=== PATIENT | male | born 1945 | race Caucasian/White ===

== ENCOUNTER → 2023-07-31 15:02 | Outpatient (REF) | payer MEDICARE, SELFPAY | LOC: PAVMRI 15:02 | PROVIDERS: ATTENDING PHYSICIAN Psychiatry & Neurology Neurology; FAMILY PHYSICIAN Family Medicine; PRIMARYCARE PHYSICIAN Family Medicine | DX: R47.9 Unspecified speech disturbances (principal) | CPT/HCPCS: 70551 ==

== ENCOUNTER 2024-02-01 13:34 | Inpatient (IN) | payer MEDICARE, SELFPAY ==
[2024-02-01] VITALS (7 sets, daily range): BP systolic 116–164; BP diastolic 74–102; BMI 21.5
--- NOTE | 2024-02-01 11:05 | EDRN ---
Dr. Bowman in room w/pt at this time.
--- NOTE | 2024-02-01 11:37 | ED.GENMED ---
History of Present Illness
General
Chief Complaint: Skin Problem
Source: patient and family
Exam Limitations: none
Time Seen by Provider: 02/01/24 10:27
Nursing documentation reviewed up to this point in time: agreed with
History of Present Illness
History of Present Illness:
78-year-old male bilateral lower extremity weakness had skin cancer removed from his left desai 1 week or so ago sutured by service order taker coincidently injured his right desai end of December a branch cut down with a chainsaw, seen at an urgent care
started on Keflex set for 5 days worth, no fever had increased redness and pain left greater than right anteriorly
No fevers did have some drainage right greater than left, his chronic low back pain had been on narcotics now on Neurontin his chronic kidney disease
Past History
Past History
ED Past Medical History: COPD, Renal failure and Other (arthritis, kidney disease,)
ED Past Surgical History: Appendectomy
Social History
Tobacco: Former smoker
Alcohol: None
Drug: None
Personal:
Living: with family
Employment: Retired
Review of Systems
Review of Systems
All Other Systems: Not applicable
Constitutional: Reports sleep disturbance; Denies fever or fatigue
EENT: Reports no symptoms
Respiratory: Reports no symptoms
Cardiac: Reports no symptoms
ABD/GI: Reports no symptoms
: Reports no symptoms
Musculoskeletal: Reports muscle stiffness and edema
Skin: Reports rash and other (Redness)
Hematologic/Lymphatic: Reports no symptoms
Psychiatric: Reports no symptoms
Phy Exam
Physical Exam
Physical Exam:
Physical Exam
General: no apparent distress, not acutely ill
Neck: No jaundice
Heart: s1/s2 regular rate and rhythm, no murmur. equal radial pulses.
Lungs: no acute respiratory distress. clear bilaterally
Abdomen: Nontender
Neuro: alert and oriented. no focal neurological deficits
Skin: Warm and dry
Psychiatric: well kept. interactive and cooperative
Extremities: Abrasion on the right desai with surrounding cellulitis sutured wound on the left desai with warmth surrounding cellulitis
Course
Orders/Labs/Results
Orders:
Orders
02/01/24 11:22
Morphine Sulfate 4 mg IV NOW STA
02/01/24 11:23
Tibia/Fibula, Right 2 View [CR Leg Tibia/fibula Right 2 Vw] Urgent
Comment:
Reason For Exam: swelling truam
02/01/24 11:31
Complete Blood Count/With Diff Urgent
Comprehensive Metabolic Panel Urgent
02/01/24 14:00
VANCOMYCIN Pharmacy to Dose [VANCOCIN Pharmacy to Dose] 1 each Pharmacy To Prepare [Call Pharmacy To Prepare] 0 ml IV PER PROTOCOL
Abnormal Lab Results
02/01/24
11:31
RBC 3.96 L 10^6/uL
(4.70-6.10)
Hgb 12.3 L g/dL
(13.0-18.0)
Hct 36.2 L %
(39.0-52.0)
MCH 31.1 H pg
(27.0-31.0)
MPV 10.6 H fL
(7.4-10.4)
Abs Immat Gran (auto) 0.1 H 10^3/uL
(0-0.05)
Absolute Lymphs (auto) 0.8 L 10^3/uL
(1.2-3.4)
Immature Gran % 1.2 H %
(0-0.5)
Lymphocytes % 11.7 L %
(20.5-51.1)
Monocytes % 9.4 H %
(1.7-9.3)
BUN 48 H mg/dl
(9-20)
Creatinine 1.8 H mg/dL
(0.7-1.3)
Total Protein 5.9 L g/dl
(6.3-8.2)
02/01/24 11:31
02/01/24 11:31
Vital Signs
Initial and Last Documented VS:
Initial Vital Signs
Temp Pulse Resp BP Pulse Ox
98.2 F 83 16 142/78 98
02/01/24 10:21 02/01/24 10:21 02/01/24 10:21 02/01/24 10:21 02/01/24 10:21
Last Documented Vital Signs
Temp Pulse Resp BP Pulse Ox
98.2 F 83 16 142/78 98
02/01/24 10:21 02/01/24 10:21 02/01/24 10:21 02/01/24 10:21 02/01/24 10:21
MDM/Problems Addressed
Differential Diagnosis Includes:
Cellulitis dermatitis has been on antibiotic
MDM/Problems Addressed:
Cellulitis failed outpatient
Chronic conditions affecting care:
COPD
Chronic conditions affecting care: Kidney disease
Acute Exacerbation and/or Progression of Chronic Illness:
COPD
Acute Exacerbation and/or Progression of Chronic Illness: Kidney disease
*Critical Care Note
Total Time (30-74mins, 75-104mins- exclusive of procedures): Not Applicable
Update Note
Update Note:
Update suspect infection, will check x-ray to look for foreign body on the right I think is unlikely no x-ray on the left as this was a surgical wound, anterior desai does not typically heal well he does have chronic renal insufficiency
ED Attending Note
-
Portions of this chart may have been created with voice recognition software.� Occasional wrong word or��sound alike� substitutions may have occurred due to the inherent limitations of voice recognition software.
Discharge Plan
Departure
Patient Disposition: Admit
Date of Disposition: 02/01/24
Time of Disposition: 12:30
Admit to: Med/Surg
Presentation/result/management discussed w/ accepting MD/DO: Hospitalist
Patient with high blood pressure during this ER visit?: No
Condition: Fair
Discharge Problem:
Cellulitis
Instructions: Cellulitis (Skin Infection), Adult (DC)
Prescriptions:
No Action
oxycodone 10 MG tablet
10 mg PO Q4HPRN PRN (Reason: breakthrough pain)
oxycodone [OxyContin] 20 MG tablet,oral only,ext.rel.12 hr
20 mg PO Q12
Referrals:
Prince Chambers DO [Family Provider] -
Interventions
Interventions:
*Risk Screen - Suicide Last Done: 02/01/24 10:58
*General Assessment Last Done: 02/01/24 10:58
*Neglect/Abuse Screening Last Done: 02/01/24 10:58
ED- Fall Risk Assessment Last Done: 02/01/24 10:58
*ED COVID-19 Vaccine History Last Done: 02/01/24 10:58
Discharge Date and Time
Print Language: ITALIAN
[2024-02-01 11:55] LABS: ALT (SGPT) 22 U/L (0-50); AST (SGOT) 25 U/L (17-59); Albumin 3.9 g/dl (3.5-5.0); Alkaline Phosphatase 89 U/L (38-126); Blood Urea Nitrogen 48 mg/dl (9-20); Calcium 9.5 mg/dl (8.4-10.2); Carbon Dioxide 25 mmol/L (22-30); Chloride 107 mmol/L (98-107); Estimated Creatinine Clearance 32 ml/min; Glucose 88 mg/dl (70-99); Potassium 5.1 mmol/L (3.5-5.1); Sodium 137 mmol/L (135-145); Total Bilirubin 0.3 mg/dl (0.2-1.3); Total Protein 5.9 g/dl (6.3-8.2); eGFR 37.58
[2024-02-01 11:56] LABS: % Basophils 0.6 % (0-2); % Eosinophils 3.4 % (0-6); % Immature Granulocytes 1.2 % (0-0.5); % Lymphocytes 11.7 % (20.5-51.1); % Monocytes 9.4 % (1.7-9.3); % Neutrophils 73.7 % (42.2-75.2); Absolute Eosinophils 0.2 10^3/uL (0-0.7); Absolute Immature Granulocytes 0.1 10^3/uL (0-0.05); Absolute Lymphocytes 0.8 10^3/uL (1.2-3.4); Absolute Monocytes 0.6 10^3/uL (0.1-0.6); Absolute Neutrophils 4.8 10^3/uL (1.4-6.5); Hematocrit 36.2 % (39.0-52.0); Hemoglobin 12.3 g/dL (13.0-18.0); Mean Corpuscular Hgb 31.1 pg (27.0-31.0); Mean Corpuscular Volume 91.4 fL (80.0-94.0); Mean Platelet Volume 10.6 fL (7.4-10.4); Nucleated Red Blood Cells % 0 % (-); Platelet Count 189 10^3/uL (130-400); Red Blood Cell Count 3.96 10^6/uL (4.70-6.10); Red Cell Dist. Width 13.6 % (11.5-14.5); White Blood Cell Count 6.5 10^3/uL (4.8-10.8)
[2024-02-01] MEDS: MORPHINE SULFATE 4 MG IV (12:01)
--- NOTE | 2024-02-01 12:43 | EDRN ---
WOUND/SKIN CARE NOTE: pt identified by name and OB.
R lower lateral leg redness
R mid anterior lower leg wound.
R lower leg medial aspect.
R lower leg anterior lateral view
R lower leg lateral view
R lower leg lateral view
R lower leg wound
R lower leg wound
L lower leg anterior medial view
--- NOTE | 2024-02-01 12:50 | EDRN ---
Pharmacist called to dose and send vancocin at this time.
--- NOTE | 2024-02-01 12:50 | HPS.HSE ---
Addendum entered and electronically signed by Rohan Aguilera MD 02/01/24 13:22:
as per outside records, recent creatinine levels 1.93, 1.85, 1.79 consistent with CKD3b
Original Note:
Family Physician
-
Family Physician: Prince Chambers
Chief Complaint
-
RLE cellulitis
History of Present Illness
78 y/o M with PMHx:
CKD (stage unknown)
Chronic low back pain
COPD
who p/w CC RLE cellulitis. Patient injured his right desai towards the end of December when using a chainsaw to cut down a tree branch. He was recently seen in urgent care and placed on Keflex. Erythema of the right lower extremity worsened and he
presented to the ER. Denies any other acute complaints including chest pain, shortness of breath, abdominal pain, vomiting, syncope, diaphoresis.
Medical History
Past Medical History
Past Medical History: Reports Other (as per HPI)
Past Surgical History: Reports Other (N/A)
Social History
Tobacco: Former Smoker
Alcohol: None
Drug: None
Family History
Family History: Not pertinent
Allergies / Home Medications
Allergies reflects when Allergies were last updated in [employer].
Home Medications with original date entered in [employer]
Allergy/Medication List:
Allergies
Allergy/AdvReac Type Severity Reaction Status Date / Time
buspirone HCl [From BuSpar] Allergy Unknown Shortness Verified 02/01/24 10:20
of Breath
fentanyl [From Duragesic] Allergy Unknown Shortness Verified 02/01/24 10:20
of Breath
hydromorphone HCl Allergy Unknown Unknown Verified 02/01/24 10:20
[From Dilaudid]
Penicillins Allergy Unknown Unknown Verified 02/01/24 10:20
Home Medications
acetaminophen 650 mg tablet,extended release 1,300 mg PO [id number] PRN mild pain 02/01/24
albuterol 90 mcg-budesonide 80 mcg/actuation HFA aerosol inhaler (Airsupra) 2 inh inhalation R QPM 02/01/24
cephalexin 250 mg tablet 250 mg PO Q8H 02/01/24
cholecalciferol (vitamin D3) 50 mcg (2,000 unit) tablet (Vitamin D3) 50 mcg PO DAILY 02/01/24
gabapentin 300 mg capsule 300 mg PO HS 02/01/24
glycopyrrolate 9 mcg-formoterol 4.8 mcg HFA aerosol inhaler (Bevespi Aerosphere) 2 puff inhalation R DAILY 02/01/24
methyl ghichlelgg-jinrcij-kizvmnx-[place] fir needle oil nasal inhalr (Vicks VapoInhaler nasal) 1 inh intranasal DAILY 02/01/24
multivitamin-ferrous fumarate-folic acid 18 mg-400 mcg tablet (Centrum) 1 tab PO DAILY 02/01/24
rimegepant 75 mg disintegrating tablet (Nurtec ODT) 75 mg PO Q48H 02/01/24
solifenacin 5 mg tablet 5 mg PO MOWEFR 02/01/24
Review of Systems
-
History Source: Patient
A 12 point ROS was completed and negative except as noted: Yes
Physical Exam
Vital Signs
Vital Signs
Temp Pulse Resp BP Pulse Ox
98.2 F 72 16 116/83 777
02/01/24 10:21 02/01/24 12:00 02/01/24 12:00 02/01/24 12:00 02/01/24 12:00
Physical Exam
General: Other (.)
Laboratory Results
-
02/01/24 11:31
02/01/24 11:31
Laboratory Results
Total Bilirubin 0.3 mg/dl (0.2-1.3) 02/01/24 11:31
AST 25 U/L (17-59) 02/01/24 11:31
ALT 22 U/L (0-50) 02/01/24 11:31
Alkaline Phosphatase 89 U/L (38-126) 02/01/24 11:31
Impression/Plan
-
Gen: NAD, AAOx3.
Eyes: EOMI, PERRLA, no scleral icterus.
Neck: supple.
CV: RRR, +S1/S2, no m/r/g.
Resp: CTAB, no rales, wheezes, or rhonchi.
Abd: +BS, soft, NT, ND
Skin: L leg with sutures laterally with mild surrounding cellulitis. No pus was able to be expressed with palpation. Right lower extremity abrasion/avulsion injury without discharge and with surrounding cellulitis that tracks distally
Neuro: CN 2-12 intact, non-focal.
Psych: Normal mood and affect.
RLE cellulitis:
-failed Keflex
-IV Ancef
-wound care
Elevated Cr:
-baseline Cr unknown (pt's family is accessing a pt portal for last Cr)
COPD:
-cont Bevespi/Airsupra
Chronic back pain:
-cont home analgesic regimen
DNR - confirmed with the pt in the ER
Heparin
--- NOTE | 2024-02-01 13:07 | EDRN ---
Dr. Aguilera in to see pt. He requested pt's baseline kidney levels. Pt's spouse is looking them up now.
--- NOTE | 2024-02-01 13:16 | EDRN ---
Pt having severe epigastric pain at this time.
--- NOTE | 2024-02-01 13:34 | EDRN ---
13:15 Dr. Aguilera notified about pt's epigastric pain, EKG, and creatinine levels via TT-- creat levels--01/04/24 1.93, 09/20/23 1.85, and 1.79 02/14.
--- NOTE | 2024-02-01 13:43 | EDRN ---
MNo Delay Nurse Report sent to 4th floor E for M/S bed 404.1 at this time w/ call placed to floor and message left for RN who will care for pt.
[2024-02-01] MEDS: VANCOCIN 540 MG IV (13:58)
[2024-02-01] MEDS: MAALOX 40 PO (13:59)
--- NOTE | 2024-02-01 14:15 | EDRN ---
Pt states at this time that his indigestion is all gone. Pain in his R lower leg remains 6-10/10 and burning at baseline to sharp when it increases. L leg is now pain free.
--- NOTE | 2024-02-01 15:26 | PTCARENOTE ---
Received pt form ER via stretcher, accompanied by ER staff. Pt AAO x3, GUTIERREZ well, transferred to bed with minimal assistance; denies weakness/dizziness. VSS. On room air- pulse ox 99%, no SOB noted. Abd soft, rounded, BS (+); to start regular
diet. Pt DTV- urinal at bedside. Pt has sutured area Lt lateral lower leg; small skin tear below Rt knee; reddened/scabbed area Rt ant lower legs; DSD applied over sites. Pt oriented to 4East, currently resting in bed; at bedside. Will
continue to monitor.
--- NOTE | 2024-02-01 16:27 | WOUNDNOTE ---
R CALF (LATERAL ANTERIOR)
--- NOTE | 2024-02-01 16:27 | WOUNDNOTE ---
R CALF (LATERAL ANTERIOR)
--- NOTE | 2024-02-01 16:27 | WOUNDNOTE ---
L CALF (LATERAL); skin cancer removal site
--- NOTE | 2024-02-01 16:27 | WOUNDNOTE ---
L CALF (lateral anterior)
--- NOTE | 2024-02-01 16:28 | WOUNDNOTE ---
JEEVAN (L LATERAL, R MEDIAL)
--- NOTE | 2024-02-01 16:34 | WOUNDNOTE ---
[facility] RN note: Patient admitted with RLE cellulitis. Patient lives with his . Patient injured his RLE from [place] branch at end of December. He had L lateral calf skin cancer removal done 01/24/[address] Clark from [place].
See H&P for complete history.
PMH: CKD, chronic low back pain, COPD, former smoker. He stated he has seen Dr. Michael, vascular surgeon at [place] a long time ago and patient is interested in switching doctors to [place].
Wound Location and type/assessment: Patient admitted with: Dermal abrasions R upper lateral calf and R distal anterior medial knee, pink with small ss drainage. +Diffuse erythema distal to R calf wound. L lateral calf skin cancer incision with
sutures intact without drainage with erythema noted medially. He has follow up appointment with flexo press operator next week for suture removal. stated LLE incision current treatment is clean with soap and water, cover with dry gauze, secure with
Ronny. Patient is on IV Ancef. Trace LE edema. Skin on heels blanchable mild red and intact. Toes cool. Patient's stated his hands and feet are usually cold. +Pedal pulses heard via portable Doppler (biphasic). Patient denies leg pain after
walking. Suggested he make routine appointment with vascular surgeon.
Appetite: on regular diet.
Pressure redistribution devices in place: Centrea Max air bed. Patient moves and ambulates himself.
Plan: Dressing on legs changed. Heels off bed with pillow. Instructed patient pressure injury prevention measures including heel elevation off bed. Patient stated he is not interested in wearing compression stockinet (i.e. Tubigrip) and he is not
interested in a visiting nurse. Suggested he follow up at wound care center.
Confirmed orders with Dr. Aguilera and discussed with CJ Carrion.
Care plan to be updated and will follow as needed.
[2024-02-01] MEDS: NSS 1000 IV (16:38)
[2024-02-01] MEDS: FLUSH (NSS) 1 FLUSH IV (16:38)
[2024-02-01] MEDS: ANCEF 5 IV ×2 (16:38→21:07)
[2024-02-01] MEDS: HEPARIN 5000 UNITS SC (19:46)
[2024-02-01] MEDS: TYLENOL 650 MG PO (19:50)
[2024-02-01] MEDS: NEURONTIN 300 MG PO (21:08)
[2024-02-02] MEDS: NSS 1000 IV ×2 (04:02→17:51)
[2024-02-02] MEDS: ANCEF 5 IV ×3 (05:36→21:05)
[2024-02-02] MEDS: STRIVERDI RESPIMAT 2 PUFF INH (07:03)
[2024-02-02] MEDS: SPIRIVA RESPIMAT 2.5 MCG 2 PUFF INH (07:03)
[2024-02-02] MEDS: TYLENOL 650 MG PO ×2 (07:16→11:21)
[2024-02-02 07:25] VITALS: BP 130/69
[2024-02-02] MEDS: VITAMIN D3 (cholecalciferol) 50 MCG PO (07:55)
[2024-02-02] MEDS: THERAGRAN 1 TABLET PO (07:55)
[2024-02-02] MEDS: HEPARIN 5000 UNITS SC ×2 (07:56→21:04)
[2024-02-02 08:19] LABS: Hematocrit 35.6 % (39.0-52.0); Mean Corp Hgb Conc. 33.7 g/dL (33.0-37.0); Mean Corpuscular Hgb 31.2 pg (27.0-31.0); Mean Corpuscular Volume 92.5 fL (80.0-94.0); Mean Platelet Volume 10.8 fL (7.4-10.4); Platelet Count 170 10^3/uL (130-400); Red Blood Cell Count 3.85 10^6/uL (4.70-6.10); Red Cell Dist. Width 13.8 % (11.5-14.5); White Blood Cell Count 4.8 10^3/uL (4.8-10.8)
[2024-02-02 08:53] LABS: Blood Urea Nitrogen 41 mg/dl (9-20); Calcium 9.3 mg/dl (8.4-10.2); Carbon Dioxide 25 mmol/L (22-30); Chloride 110 mmol/L (98-107); Estimated Creatinine Clearance 36 ml/min; Glucose 79 mg/dl (70-99); Potassium 4.6 mmol/L (3.5-5.1); Sodium 138 mmol/L (135-145); eGFR 43.29
[2024-02-02 09:25] VITALS: BMI 28.6
--- NOTE | 2024-02-02 09:50 | W.PN.HOSP.TC ---
Today's Communication/Plan
-
see bold
Assessment / Plan
Assessment / Plan
Gen: NAD, Awake and alert
Eyes: EOMI, PERRLA, no scleral icterus.
Neck: supple.
CV: remains RRR, +S1/S2, no m/r/g.
Resp: CTAB, no rales, wheezes, or rhonchi.
Abd: +BS, soft, NT, ND
Skin: L leg with sutures laterally with minimal surrounding cellulitis. Right lower extremity with intact dressing over abrasion/avulsion injury. Surrounding cellulitis improved from yesterday.
Neuro: CN 2-12 intact, non-focal.
Psych: Normal mood and affect.
RLE cellulitis:
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
-cont IV Ancef
-wound care
-likely d/c tomorrow on PO abx
Other problems:
CKD3b
COPD: cont Bevespi/Airsupra
Chronic back pain: cont home analgesic regimen
DNR - confirmed with the pt in the ER
Heparin
Anticipated Discharge: Within 24 hours
Subjective/Interval History
-
Date of Service: February 02, 2024
No new complaints.
Objective Data
-
Labs:
Laboratory Results
02/02/24
06:05
WBC 4.8
Hgb 12.0 L
Hct 35.6 L
Plt Count 170
Sodium 138
Potassium 4.6
Chloride 110 H
Carbon Dioxide 25
BUN 41 H
Creatinine 1.6 H
Glucose 79
Calcium 9.3
Vital Signs:
Vital Signs
Temp Pulse Resp BP Pulse Ox
97.7 F 65 18 130/69 93
02/02/24 07:25 02/02/24 07:25 02/02/24 07:25 02/02/24 07:25 02/02/24 07:41
I&O
02/01/24 02/02/24 02/03/24
06:59 06:59 06:59
Intake Total 340 / 340
Output Total 650 / 650
Balance -310 / -310
[2024-02-02 15:20] VITALS: BP 126/73
--- NOTE | 2024-02-02 17:00 | CM ---
CM met with Thuy at bedside to complete IA. He and his live in a 1 story home with no entry steps.
Thuy injured his leg doing yard work last month. The wound became infected and he was taking antibiotics from urgent care, however it continued to worsen. He is now on IV abx and anticipates discharge in a day or so; VN offered and refused.
Plan: Discharge to home with OP follow up.
PCP: Prince Chambers
Pharm[place]: [facility] [facility] [place]
[2024-02-02] MEDS: NEURONTIN 300 MG PO (21:05)
[2024-02-02 23:29] VITALS: BP 136/81
[2024-02-03] MEDS: ANCEF 5 IV (05:53)
[2024-02-03 06:00] VITALS: BMI 28.4
[2024-02-03] MEDS: STRIVERDI RESPIMAT 2 PUFF INH (07:10)
[2024-02-03] MEDS: SPIRIVA RESPIMAT 2.5 MCG 2 PUFF INH (07:10)
[2024-02-03 07:25] VITALS: BP 128/82
[2024-02-03] MEDS: VITAMIN D3 (cholecalciferol) 50 MCG PO (09:39)
[2024-02-03] MEDS: THERAGRAN 1 TABLET PO (09:39)
[2024-02-03] MEDS: TYLENOL 650 MG PO (09:41)
[2024-02-03] MEDS: HEPARIN SC (09:42)
--- NOTE | 2024-02-03 11:49 | W.PN.HOSP.TC ---
Today's Communication/Plan
-
Discharge
Assessment / Plan
Assessment / Plan
Left lateral calf surgical wound without any bleeding or discharge. Has sutures in.
Right leg skin abrasion no redness
Cardiovascular system S1-S2 appreciated
Chest clear to auscultation
#RLE cellulitis:
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
-Discussion with pharmacy patient should be on 500 every 6 for 5 days
-Change Ancef to Keflex. Discussed with patient and about new prescription
-wound care discussed
-Last tetanus vaccine was 01/25/2023 per and patient
#CKD3b
#COPD: cont Bevespi/Airsupra
#Chronic back pain: cont home analgesic regimen
#Ex-smoker
#DNR
#DVT prophylaxis-subcutaneous heparin
Discussed with the patient's regarding follow-up care
Discussed with nursing at bedside
Anticipated Discharge: Today
Subjective/Interval History
-
Date of Service: February 03, 2024
Objective Data
-
Vital Signs:
Vital Signs
Temp Pulse Resp BP Pulse Ox
97.6 F 76 18 128/82 96
02/03/24 07:25 02/03/24 07:25 02/03/24 07:25 02/03/24 07:25 02/03/24 07:25
I&O
02/02/24 02/03/24 02/04/24
06:59 06:59 06:59
Intake Total 340 / 340
Output Total 650 / 650 875 / 875
Balance -310 / -310 -875 / -875
--- NOTE | 2024-02-03 12:19 | W.DS.TRANS ---
Addendum entered and electronically signed by Marly Hernandez MD 02/04/24 17:38:
Dictation- [id number]
Original Note:
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
-
Discharge Instructions:
Discharge Diagnosis/Procedures Cellulitis, COPD, Chronic kidney disease
Diet As tolerated
Activity As tolerated
Driving Restrictions As prior to admission
Instructions:
Stand-Alone Forms:
Changes to Home Medications: Yes
Discharge Medications:
DC Medications w/original date entered in [employer]
acetaminophen 650 mg tablet,extended release 1,300 mg PO DAILY Pain 02/01/24
albuterol 90 mcg-budesonide 80 mcg/actuation HFA aerosol inhaler (Airsupra) 2 inh inhalation R QPM Lung/Breathing Issues 02/01/24
cholecalciferol (vitamin D3) 50 mcg (2,000 unit) tablet (Vitamin D3) 50 mcg PO DAILY Supplement 02/01/24
gabapentin 300 mg capsule 300 mg PO HS Pain 02/01/24
glycopyrrolate 9 mcg-formoterol 4.8 mcg HFA aerosol inhaler (Bevespi Aerosphere) 2 puff inhalation R DAILY Lung/Breathing Issues 02/01/24
multivitamin-ferrous fumarate-folic acid 18 mg-400 mcg tablet (Centrum) 1 tab PO DAILY Supplement 02/01/24
rimegepant 75 mg disintegrating tablet (Nurtec ODT) 75 mg PO Q48H Neurological Condition 02/01/24
solifenacin 5 mg tablet 5 mg PO MOWEFR Lung/Breathing Issues 02/01/24
cephalexin 500 mg capsule 500 mg PO Q6H Infection #20 caps 02/03/24
Home Medication Changes
new
cephalexin 500 mg capsule 500 mg PO Q6H Infection #20 caps 02/03/24
Pending Results: No
--- NOTE | 2024-02-03 12:43 | CM ---
Chart reviewed and plan is to home today no needs.
Plan; Home no needs.
== END 2024-02-03 13:00 | disposition home or self-care (01) | DRG 603 ==
LOC: 4 EAST ACU 13:34
PROVIDERS: ADMITTING PHYSICIAN Internal Medicine; ATTENDING PHYSICIAN Hospitalist; EMERGENCY PHYSICIAN Emergency Medicine; FAMILY PHYSICIAN Family Medicine
DX: L03.115 Cellulitis of right lower limb (principal); N18.32 Chronic kidney disease, stage 3b; J44.9 Chronic obstructive pulmonary disease, unspecified; G89.29 Other chronic pain; M54.50 Low back pain, unspecified; M19.90 Unspecified osteoarthritis, unspecified site; Z79.899 Other long term (current) drug therapy; Z88.0 Allergy status to penicillin; Z88.5 Allergy status to narcotic agent; Z88.8 Allergy status to other drugs, medicaments and biological substances; Z66 Do not resuscitate; Z98.890 Other specified postprocedural states; Z85.828 Personal history of other malignant neoplasm of skin; Z87.891 Personal history of nicotine dependence
CPT/HCPCS: 73590; 80048; 80053; 85025; 85027; 93005; 94640; 96374; 96375; 99285

== ENCOUNTER → 2024-05-05 12:24 | Outpatient (REF) | payer MEDICARE, SELFPAY | LOC: WOUND 12:24 | PROVIDERS: ATTENDING PHYSICIAN Surgery; FAMILY PHYSICIAN Family Medicine | DX: L53.9 Erythematous condition, unspecified (principal); I83.93 Asymptomatic varicose veins of bilateral lower extremities | CPT/HCPCS: 99203 ==

== ENCOUNTER → 2024-08-18 11:15 | Outpatient (REF) | payer MEDICARE, SELFPAY | LOC: HWRAD 11:15 | PROVIDERS: ATTENDING PHYSICIAN Nurse Practitioner Adult Health; FAMILY PHYSICIAN Family Medicine | DX: J18.9 Pneumonia, unspecified organism (principal) | CPT/HCPCS: 71046 ==

== ENCOUNTER 2024-09-23 11:16 | Emergency (ER) | payer MEDICARE, SELFPAY ==
[2024-09-23] VITALS (7 sets, daily range): BP systolic 109–141; BP diastolic 52–81; BMI 20.5
--- NOTE | 2024-09-23 12:37 | ED.GENMED ---
History of Present Illness
General
Chief Complaint: Chest Pain
Source: patient and spouse
Exam Limitations: none
Time Seen by Provider: 09/23/24 11:35
Nursing documentation reviewed up to this point in time: agreed with
History of Present Illness
History of Present Illness:
The patient is a pleasant 79-year-old man who reports several days of intermittent chest pain. Patient reports it has been going on for at least a week. The episodes last for a few minutes and go away. Patient reports that it does not seem to be
related to exertion, eating or resting. Patient reports that over the past few days, he developed nausea, vomiting and diarrhea. Patient reports that his symptoms of this are substantially better and he no longer has any nausea, vomiting or
diarrhea. He denies cough and shortness of breath. Patient reports that he is essentially chest pain-free now. He denies leg pain and leg swelling. He denies a history of PE and DVT.
Past History
Past History
ED Past Medical History: COPD, Renal failure and Other (arthritis, kidney disease,)
ED Past Surgical History: Appendectomy
Social History
Tobacco: Former smoker
Alcohol: None
Drug: None
Personal:
Living: with family
Employment: Retired
Family History
Family History: Other
Review of Systems
Review of Systems
Allergies reviewed?: Yes
All Other Systems: ROS reviewed and negative except as documented in HPI and ROS
Constitutional: Reports fatigue
EENT: Reports no symptoms
Respiratory: Reports no symptoms
Cardiac: Reports chest pain
ABD/GI: Reports nausea, vomiting, diarrhea and anorexia
: Reports no symptoms
Musculoskeletal: Reports no symptoms
Skin: Reports no symptoms
Neurological: Reports no symptoms
Endocrine: Reports no symptoms
Hematologic/Lymphatic: Reports no symptoms
Psychiatric: Reports no symptoms
Phy Exam
Physical Exam
Physical Exam:
Physical Exam
General: no apparent distress, not acutely ill. Very comfortable and well-appearing
Neck: supple. no meningeal signs. normal psoterior pharynx
Heart: s1/s2 regular rate and rhythm, equal radial and femoral pulses bilaterally
Lungs: no acute respiratory distress but occasional wheeze throughout.
Abdomen: normal bowel sounds. not tender. no CVAT
Neuro: alert and oriented. no focal neurological deficits
Skin: no rash
Psychiatric: well kept. interactive and cooperative
Extremities: no edema. no calf tenderness. negative homans. good distal pulses
Scores
Heart Score for Chest Pain Patients
STEMI patient?: Not applicable
Course
Orders/Labs/Results
Orders:
Orders
09/23/24 11:17
Electrocardiogram (*1) Urgent
Reason for Study: Chest Pain
EKG- Treatment ONCE
09/23/24 12:21
CMP [Comprehensive Metabolic Panel] Urgent
Complete Blood Count/With Diff Urgent
Troponin I Urgent
09/23/24 12:48
Ipratropium/Albuterol Sulfate [Duoneb] 3 ml INH R NOW ONE
09/23/24 12:49
CR Chest - 2 Views Urgent
Comment:
Reason For Exam: CP
09/23/24 14:05
0.9% Sodium Chloride 1000 ml [Nss] 1,000 ml IV BOLUS
09/23/24 14:12
EKG [Electrocardiogram (*1)] Urgent
Reason for Study: Chest Pain
EKG- Treatment ONCE
09/23/24 15:20
Troponin I Urgent
Abnormal Lab Results
09/23/24
12:21
RBC 4.32 L 10^6/uL
(4.70-6.10)
Hct 38.6 L %
(39.0-52.0)
MPV 10.6 H fL
(7.4-10.4)
Absolute Lymphs (auto) 0.9 L 10^3/uL
(1.2-3.4)
Lymphocytes % 15.7 L %
(20.5-51.1)
Monocytes % 10.8 H %
(1.7-9.3)
Potassium 5.3 H mmol/L
(3.5-5.1)
Chloride 108 H mmol/L
(98-107)
BUN 42 H mg/dl
(9-20)
Creatinine 2.3 H mg/dL
(0.7-1.3)
Total Protein 5.9 L g/dl
(6.3-8.2)
09/23/24 12:21
09/23/24 12:21
Vital Signs
Initial and Last Documented VS:
Initial Vital Signs
Temp Pulse Resp BP Pulse Ox
98.2 F 84 16 141/75 99
09/23/24 11:24 09/23/24 11:24 09/23/24 11:24 09/23/24 11:24 09/23/24 11:24
Last Documented Vital Signs
Temp Pulse Resp BP Pulse Ox
98.2 F 75 16 109/52 97
09/23/24 11:24 09/23/24 15:30 09/23/24 15:30 09/23/24 15:00 09/23/24 12:45
MDM/Problems Addressed
Differential Diagnosis Includes:
Acute dehydration, acute coronary syndrome, CHF, pneumonia, COPD exacerbation
MDM/Problems Addressed:
Patient presents with acute chest pain
Chronic conditions affecting care: COPD
Acute Exacerbation and/or Progression of Chronic Illness:
Patient may have COPD exacerbation
*Radiology
Radiology exam reviewed: preliminary read by ED provider (Chest x-ray reviewed by me. No acute disease) and radiology read reviewed
*Pulse Oximetry
Patient hypoxic: no
*EKG
Interpreted by ED Provider?: Yes
Interpretation: normal
Comparison EKG: no comparison EKG present
Rate: normal
Rhythm: sinus
[place]: normal axis
Interval: normal interval
QRS Pattern: normal QRS
Ischemia: no ischemia
*[employer]er Interpretation
Rate: normal
Interpretation: normal
Rhythm: sinus
*Critical Care Note
Total Time (30-74mins, 75-104mins- exclusive of procedures): Not Applicable
Data Reviewed
Review of Other/Old Records Reveals: Radiology Studies (Chest x-ray reviewed from 08/18/2024 which shows no acute disease, hyperinflation)
Patient Management
Social determinants of health affecting care: Living situation and Strong social support
Escalation/DeEscalation of care consider admission/obs:
Patient remains well and comfortable appearing. His chest x-ray shows no sign of pneumonia or heart failure. He is breathing comfortably without any chest pain for hours. It is doubtful he is acute coronary syndrome. Patient's creatinine is
likely above baseline due to recent nausea vomiting and diarrhea and fluid losses and dehydration. Patient hydrated in the ED and recommended to follow-up with his doctor in about 1 week to have his creatinine retested. Patient able to tolerate
fluids in the ED without difficulty
Update Note
Update Note:
Patient continues to rest comfortably. Second EKG ordered at 1415 which shows no ischemia. Normal sinus rhythm. Normal ST segments. Normal QRS complexes
ED Attending Note
-
Portions of this chart may have been created with voice recognition software.� Occasional wrong word or��sound alike� substitutions may have occurred due to the inherent limitations of voice recognition software.
Discharge Plan
Departure
Patient Disposition: Home (Routine Discharge)
Date of Disposition: 09/23/24
Time of Disposition: 15:55
Patient with high blood pressure during this ER visit?: No
Condition: Good
Covid-19: Not Applicable
Discharge Problem:
Chest pain, Acute dehydration
Instructions: Dehydration in adults - ED discharge instructions, Chest Pain DCA Follow Up
Prescriptions:
No Action
acetaminophen 650 mg Tablet Extended Release
1,300 mg PO DAILY
gabapentin 300 mg Capsule
300 mg PO HS
solifenacin 5 mg Tablet
5 mg PO MOWEFR
cholecalciferol (vitamin D3) [Vitamin D3] 50 mcg (2,000 unit) Tablet
50 mcg PO DAILY
Centrum 18-400 mg-mcg Tablet
1 tab PO DAILY
Bevespi Aerosphere 9-4.8 mcg Hfa Aerosol Inhaler
2 puff INHALATION R DAILY
Nurtec ODT 75 mg Tablet,Disintegrating
75 mg PO Q48H
Airsupra 90-80 mcg/actuation Hfa Aerosol Inhaler
2 inh INHALATION R QPM
cephalexin 500 mg capsule
500 mg PO Q6H Qty: 20 0RF
Referrals:
Prince Chambers DO [Family Provider] -
Activity Restrictions/Additional Instructions:
Your kidney function was slightly more abnormal than what it had been in the past. I believe this is from dehydration. Please see your doctor in about 1 week to have your kidney function retested.
Interventions
Interventions:
*Risk Screen - Suicide Last Done: 09/23/24 11:24
*General Assessment Last Done: 09/23/24 12:03
*Neglect/Abuse Screening Last Done: 09/23/24 11:24
*ED- Fall Risk Assessment Last Done: 09/23/24 12:03
*ED COVID-19 Vaccine History Last Done: 09/23/24 12:03
ED- Cardiac Assessment Last Done: 09/23/24 12:03
Discharge Date and Time
Print Language: GERMAN
[2024-09-23 12:44] LABS: ALT (SGPT) 21 U/L (0-50); AST (SGOT) 24 U/L (17-59); Albumin 4.1 g/dl (3.5-5.0); Alkaline Phosphatase 79 U/L (38-126); Blood Urea Nitrogen 42 mg/dl (9-20); Calcium 9.7 mg/dl (8.4-10.2); Carbon Dioxide 24 mmol/L (22-30); Chloride 108 mmol/L (98-107); Estimated Creatinine Clearance 24 ml/min; Glucose 99 mg/dl (70-99); Potassium 5.3 mmol/L (3.5-5.1); Sodium 140 mmol/L (135-145); Total Bilirubin 0.6 mg/dl (0.2-1.3); Total Protein 5.9 g/dl (6.3-8.2); eGFR 27.83
[2024-09-23 12:45] LABS: % Basophils 0.3 % (0-2); % Eosinophils 0.7 % (0-6); % Immature Granulocytes 0.3 % (0-0.5); % Lymphocytes 15.7 % (20.5-51.1); % Monocytes 10.8 % (1.7-9.3); % Neutrophils 72.2 % (42.2-75.2); Absolute Lymphocytes 0.9 10^3/uL (1.2-3.4); Absolute Monocytes 0.6 10^3/uL (0.1-0.6); Absolute Neutrophils 4.1 10^3/uL (1.4-6.5); Hematocrit 38.6 % (39.0-52.0); Hemoglobin 13.2 g/dL (13.0-18.0); Mean Corp Hgb Conc. 34.2 g/dL (33.0-37.0); Mean Corpuscular Hgb 30.6 pg (27.0-31.0); Mean Corpuscular Volume 89.4 fL (80.0-94.0); Mean Platelet Volume 10.6 fL (7.4-10.4); Nucleated Red Blood Cells % 0 % (-); Platelet Count 150 10^3/uL (130-400); Red Blood Cell Count 4.32 10^6/uL (4.70-6.10); Red Cell Dist. Width 13.2 % (11.5-14.5); White Blood Cell Count 5.7 10^3/uL (4.8-10.8)
[2024-09-23 12:57] LABS: Troponin I 0.015 ng/ml
[2024-09-23] MEDS: DUONEB 3 ML INH (13:40)
[2024-09-23] MEDS: NSS 1000 IV (14:22)
[2024-09-23 15:49] LABS: Troponin I 0.014 ng/ml
== END 2024-09-23 16:24 | disposition home or self-care (01) ==
LOC: EMR 11:16
PROVIDERS: EMERGENCY PHYSICIAN Emergency Medicine; FAMILY PHYSICIAN Family Medicine
DX: R07.89 Other chest pain (principal); E86.0 Dehydration; J44.9 Chronic obstructive pulmonary disease, unspecified; Z87.891 Personal history of nicotine dependence; Z90.49 Acquired absence of other specified parts of digestive tract
CPT/HCPCS: 99285; 94640; 96360; 71046; 80053; 84484; 85025; 93005

== ENCOUNTER → 2024-10-22 11:16 | Outpatient (REF) | payer MEDICARE, SELFPAY | LOC: HWRCS 11:16 | PROVIDERS: ATTENDING PHYSICIAN Internal Medicine Cardiovascular Disease; FAMILY PHYSICIAN Family Medicine | DX: R06.02 Shortness of breath (principal) | CPT/HCPCS: 93306 ==